=== PATIENT | female | born 1990 | race African-American/Black ===

== ENCOUNTER 2017-03-04 01:04 | Outpatient (CLI) | payer MEDICAID ==
[2017-03-04 01:43] LABS: APPEARANCE,URINE CLEAR; BILIRUBIN,URINE NEGATIVE (NEGATIVE); GLUCOSE, URINE NEGATIVE (NEGATIVE); KETONES,URINE NEGATIVE (NEGATIVE); LEUKOCYTE ESTERASE,URINE SMALL (NEGATIVE); NITRITE,URINE NEGATIVE (NEGATIVE); PROTEIN,URINE NEGATIVE (NEGATIVE); URINE SPECIFIC GRAVITY 1.015; UROBILINOGEN,URINE NEGATIVE mg/dL (<2.0)
--- NOTE | 2017-03-04 02:20 | Non Stress Test Report ---
Non Stress Test Datetime Report Generated by CPN: 03/04/2017 02:20 DEMOGRAPHIC Test Number: 1 EGA NST: 39.3 INDICATION Indication for Study: Ordered by Provider Indication for Study (NST) Other: LC VITAL SIGNS Temperature - NST: 97.6 URINE RESULTS Urine Protein, NST: Negative Urine Ketones - NST: Negative Urine Glucose - NST: Negative Urine Blood - NST: Negative MONITORING Monitor Explained: Monitor Explained; Test Explained; Patient Verbalized Understanding Time on Monitor: 03/04/2017 01:27 Time off Monitor: 03/04/2017 01:54 NST Duration: 27 NST INTERVENTIONS NST Interventions: PO Hydration Physician Notified NST: Vince BABY A: [id number] BABY A Movement : Present Contraction Frequency : 1 FHR Baseline : 125 Accelerations : 15X15 Decelerations : None Variability : Moderate 6-25bpm NST Review: Meets Criteria for Reactive NST NST Review and Verified By : B. Ring RN NST Results: Reactive NST REPORT Report Trigger: Send Report
[2017-03-04 02:44] LABS: URINE BARBITURATES SCREEN NEGATIVE; URINE METHADONE SCREEN NEGATIVE; URINE OPIATES LOW NEGATIVE; URINE PHENCYCLIDINE SCREEN NEGATIVE
== END 2017-03-04 02:20 | disposition home or self-care (01) ==
LOC: LC 01:04
PROVIDERS: ATTEND Obstetrics & Gynecology
PROC: 4A1HXCZ Monitoring of Products of Conception, Cardiac Rate, External Approach (ICD-10-PCS; principal; 2017-03-04)
DX: O47.1 False labor at or after 37 completed weeks of gestation (principal); Z3A.39 39 weeks gestation of pregnancy
CPT/HCPCS: 59025; 80307; 81005

== ENCOUNTER 2017-03-06 08:39 | Outpatient (CLI) | payer MEDICAID ==
[2017-03-06 09:18] LABS: APPEARANCE,URINE CLOUDY; BILIRUBIN,URINE NEGATIVE (NEGATIVE); GLUCOSE, URINE NEGATIVE (NEGATIVE); KETONES,URINE NEGATIVE (NEGATIVE); LEUKOCYTE ESTERASE,URINE MODERATE (NEGATIVE); NITRITE,URINE NEGATIVE (NEGATIVE); PROTEIN,URINE NEGATIVE (NEGATIVE); URINE SPECIFIC GRAVITY 1.012; UROBILINOGEN,URINE NEGATIVE mg/dL (<2.0)
[2017-03-06 09:37] LABS: URINE BARBITURATES SCREEN NEGATIVE; URINE METHADONE SCREEN NEGATIVE; URINE OPIATES LOW NEGATIVE; URINE PHENCYCLIDINE SCREEN NEGATIVE
[2017-03-06 10:53] LABS: CHLAM PCR NOT DETECTED (NOT DETECT)
--- NOTE | 2017-03-06 10:53 | Non Stress Test Report ---
Non Stress Test Datetime Report Generated by CPN: 03/06/2017 10:53 DEMOGRAPHIC EGA NST: 39.5 INDICATION Indication for Study: Other Indication for Study (NST) Other: LC MONITORING Monitor Explained: Monitor Explained; Test Explained; Patient Verbalized Understanding Time on Monitor: 03/06/2017 08:58 Time off Monitor: 03/06/2017 10:36 NST Duration: 98 NST INTERVENTIONS NST Interventions: PO Hydration; Reposition Patient Physician Notified NST: Dr Cr/C Cunha CNM BABY A: [id number] BABY A Movement : Present Contraction Frequency : irregular with irritability FHR Baseline : 135 Accelerations : 15X15 Decelerations : None Variability : Moderate 6-25bpm NST Review: Meets Criteria for Reactive NST NST Review and Verified By : FLORA RITCHIE Results: Reactive NST REPORT Report Trigger: Send Report
== END 2017-03-06 10:48 | disposition home or self-care (01) ==
LOC: LC 08:39
PROVIDERS: ATTEND Obstetrics & Gynecology
PROC: 4A1HXCZ Monitoring of Products of Conception, Cardiac Rate, External Approach (ICD-10-PCS; principal; 2017-03-06)
DX: O47.1 False labor at or after 37 completed weeks of gestation (principal); Z3A.39 39 weeks gestation of pregnancy
CPT/HCPCS: 59025; 80307; 81005; 87491; 87591

== ENCOUNTER 2017-03-06 15:27 | Inpatient (IN) | payer MEDICAID ==
[2017-03-06] MEDS ORDERED: RINGERS SOLUTION,LACTATED 1,000 ML IV ONE (15:32)
[2017-03-06] MEDS ORDERED: RINGERS SOLUTION,LACTATED 1,000 ML IV PRN (15:32)
[2017-03-06] MEDS ORDERED: PENICILLIN G-K 5 MILLION UNIT VIAL ONE (15:42)
[2017-03-06] MEDS ORDERED: LIDOCAINE 1% INJ-PF (10 MG/ML) 30 ML SDV ONE (15:42)
[2017-03-06] MEDS ORDERED: OXYTOCIN/NORMAL SALINE 20 UNIT/1,000 ML RTUINJ ONE (15:42)
[2017-03-06] MEDS ORDERED: MISOPROSTOL 0.2 MG TABLET ONE (15:42)
[2017-03-06 15:54] LABS: APPEARANCE,URINE CLEAR; BILIRUBIN,URINE NEGATIVE (NEGATIVE); GLUCOSE, URINE NEGATIVE (NEGATIVE); KETONES,URINE NEGATIVE (NEGATIVE); LEUKOCYTE ESTERASE,URINE NEGATIVE (NEGATIVE); NITRITE,URINE NEGATIVE (NEGATIVE); PROTEIN,URINE NEGATIVE (NEGATIVE); URINE SPECIFIC GRAVITY 1.012; UROBILINOGEN,URINE NEGATIVE mg/dL (<2.0)
[2017-03-06 16:05] LABS: ABSOLUTE EOSINOPHILS # (AUTO) 0.1 10^3/uL (0.0-0.6); ABSOLUTE LYMPHOCYTES (AUTO) 1.5 10^3/uL (0.5-4.7); ABSOLUTE MONOCYTES (AUTO) 0.7 10^3/uL (0.1-1.4); ABSOLUTE NEUT (AUTO) 3.7 10^3/uL (1.7-8.2); BASOPHILS % (AUTO) 0.6 % (0-2); EOSINOPHILS % (AUTO) 1.4 % (0-6); HEMATOCRIT 32.6 % (36.0-47.0); HEMOGLOBIN 11.1 g/dL (12.0-15.5); HGB HCT DIFFERENCE 0.7; LYMPHOCYTES % (AUTO) 24.9 % (13-45); MEAN CORPUSCULAR HEMOGLOBIN 29.6 pg (27.0-33.4); MEAN CORPUSCULAR HGB CONC 34.1 g/dL (32.0-36.0); MEAN CORPUSCULAR VOLUME 87 fl (80-97); MONOCYTES % (AUTO) 11.8 % (3-13); RED BLOOD COUNT 3.75 10^6/uL (3.72-5.28); RED CELL DISTRIBUTION WIDTH 13.6 % (11.5-14.0); SEGMENTED NEUTROPHILS % (AUTO) 61.3 % (42-78); WHITE BLOOD COUNT 6.1 10^3/uL (4.0-10.5)
[2017-03-06 16:19] LABS: URINE BARBITURATES SCREEN NEGATIVE; URINE METHADONE SCREEN NEGATIVE; URINE OPIATES LOW NEGATIVE; URINE PHENCYCLIDINE SCREEN NEGATIVE
[2017-03-06] MEDS ORDERED: DIPH/PERTUSS(ACELL)/TETANUS VAC/PF 0.5 ML SYR (>=10YO) IM PRN (16:48)
[2017-03-06] MEDS ORDERED: MEASLES,MUMPS&RUBELLA VACC/PF 0.5 ML VIAL SUBCUT PRN (16:48)
[2017-03-06] MEDS ORDERED: DIBUCAINE 1% OINTMENT 28 GM TP PRN (16:48)
[2017-03-06] MEDS ORDERED: BENZOCAINE/MENTHOL AEROSOL SPRAY 56 ML TOP PRN (16:48)
[2017-03-06] MEDS ORDERED: PSEUDOEPHEDRINE HCL 30 MG TABLET PO PRN (16:48)
[2017-03-06] MEDS ORDERED: GLYCERIN/WITCH HAZEL LEAF 1 EACH MED..PAD TP PRN (16:48)
[2017-03-06] MEDS ORDERED: NA PHOS,M-B/NA PHOS,DI-BA (ADULT) 133 ML ENEMA PR PRN (16:48)
[2017-03-06] MEDS ORDERED: PROMETHAZINE HCL 25 MG TABLET PO PRN (16:48)
[2017-03-06] MEDS ORDERED: ACETAMINOPHEN 650 MG SUPP.RECT PR PRN (16:48)
[2017-03-06] MEDS ORDERED: PROMETHAZINE HCL INJ 25 MG/1 ML VIAL IV PRN (16:48)
[2017-03-06] MEDS ORDERED: MAGNESIUM HYDROXIDE SUSP 30 ML UDCUP PO PRN (16:48)
[2017-03-06] MEDS ORDERED: PROMETHAZINE HCL 25 MG SUPP.RECT PR PRN (16:48)
[2017-03-06] MEDS ORDERED: DIPHENHYDRAMINE HCL 25 MG CAPSULE PO PRN (16:48)
[2017-03-06] MEDS ORDERED: OXYTOCIN/NORMAL SALINE 1,000 ML IV PRN (16:48)
[2017-03-06] MEDS ORDERED: IBUPROFEN 800 MG TABLET ONE (16:54)
--- NOTE | 2017-03-06 18:16 | Admission Physical ---
Datetime Report Generated by CPN: 03/06/2017 18:16 CURRENT ADMISSION Hx Assessment: The History has been Reviewed and is Current Chief Complaint: Uterine Contractions Indication for Induction: Not Applicable Admit Plan: Admit to Unit; Initiate Labor Protocol ALLERGIES Medication Allergies: No Medication Allergies: No Known Allergies (03/06/2017) Latex: No Latex Allergies OBSTETRICAL HISTORY EDC: 03/08/2017 00:00 : 5 Para: 2 Gestational Diabetes: No Rh Sensitization: No Incompetent Cervix: No SHERIDAN: No Infertility: No ART Treatment: No Uterine Anomaly: No IUGR: No Hx Previous C/S: No Macrosomia: No Hx Loss/Stillborn: No PIH: No Hx : No Placenta Previa/Abruption: No Depression/PP Depression: No PTL/PROM: No Post Hemorrhage: No SEE RECORDS Alcohol: No Marijuana : Yes Marijuana Comments: positive 03/06/17 Cocaine: No Other Illicit Drugs: No Cigarettes: Never Smoker. [id number] MEDICAL HISTORY Diabetes: No Blood Transfusion: No Pulmonary Disease (Asthma, TB): No Breast Disease: No Hypertension: No Generation Technologist Surgery: No Heart Disease: No Hosp/Surgery: No Autoimmune Disorder: No Anesthetic Complications: No Kidney Disease: No Abnormal Pap Smear: No Neuro/Epilepsy: No Psychiatric Disorders: No Other Medical Diseases: No Hepatitis/Liver Disease: No Significant Family History: No Varicosities/Phlebitis: No Trauma/Violence : No Thyroid Dysfunction: No INFECTIOUS HISTORY Gonorrhea: Yes Genital Herpes: No Chlamydia: No Tuberculosis: No Syphilis: No Hepatitis: No HIV/AIDS Exposure: No Rash or Viral Illness: No HPV: No Infectious History Comments: Positive GC this treated at office PHYSICAL EXAM General: Normal HEENT: Deferred Neurologic: Normal Thyroid: Deferred Heart: Normal Lungs: Normal Breast: Deferred Back: Normal Abdomen: Normal Genitourinary Exam: Normal Extremities: Normal DTRs: Normal Pelvic Type: Adequate Physical Exam Comments: proven to 7lbs 6oz VAGINAL EXAM Contraction Comments: 4-5min FETUS A EGA: 39.5 Monitoring: External US FHR Category: Category I Admit Comment: 27yo @ 39w5d medical hx significant for Late entry to care, obesity, PPD/anxiety with prior deliveries-no meds, Hx of THC use (positive on labor check earlier today but pt. reported no use during ), GBS positive and positive third trim gonorrhea screen (02/16/17) with negative KENIA today. Rubella immune, B pos. blood type. Pt. was sent home in early labor this morning and is now back with cervical change per RN exam. Will begin GBS prophylaxis and initiate labor protocol. Anticipate . Declines pain medication or epidural at this time. PLANS FOR LABOR AND DELIVERY Labor and Delivery: None Pain Management: None Feeding Preference: Breast Benefit of Breast Feed Discussed: Yes Circumcision: Yes INFORMED CONSENT Assignment: Dima Cr DO Signature: with User ID: Hugh : with User ID: Hugh
[2017-03-06] MEDS: DOCUSATE SODIUM 100 MG CAPSULE PO SCH (19:33)
[2017-03-06] MEDS: FERROUS SULFATE 325 MG TABLET PO SCH (19:33)
[2017-03-06] MEDS: FAMOTIDINE 20 MG TABLET PO SCH (21:53)
[2017-03-06] MEDS: IBUPROFEN 800 MG TABLET PO SCH (21:53)
[2017-03-06] MEDS: ACETAMINOPHEN WITH CODEINE #3 TABLET PO PRN (23:46)
[2017-03-07] MEDS: IBUPROFEN 800 MG TABLET PO SCH ×3 (05:59→21:57)
[2017-03-07 07:55] LABS: HEMOGLOBIN 10.5 g/dL (12.0-15.5); HGB HCT DIFFERENCE 0.5; MEAN CORPUSCULAR HGB CONC 33.8 g/dL (32.0-36.0); MEAN CORPUSCULAR VOLUME 89 fl (80-97); RED CELL DISTRIBUTION WIDTH 13.7 % (11.5-14.0); WHITE BLOOD COUNT 8.1 10^3/uL (4.0-10.5)
[2017-03-07] MEDS: PRENATAL VITAMIN W-O CA NO5/FE FUMARATE/FA CAPSULE PO SCH (09:30)
[2017-03-07] MEDS: FERROUS SULFATE 325 MG TABLET PO SCH ×2 (09:30→17:39)
[2017-03-07] MEDS: FAMOTIDINE 20 MG TABLET PO SCH ×2 (09:31→21:57)
[2017-03-07] MEDS: DOCUSATE SODIUM 100 MG CAPSULE PO SCH ×2 (09:31→17:39)
[2017-03-07] MEDS: SENNOSIDES/DOCUSATE 8.6-50 MG 1 EACH TABLET PO SCH (09:31)
--- NOTE | 2017-03-07 12:13 | PDOC PROGRESS REPORT ---
Subjective-OB Subjective: Post Delivery Day: 27 year old. Denies any needs at this time pt sitting up offers no complaints spontaneous labor with some difficulty vendor management consultant to see pt with next feeding planner chief to see pt- history of gc this , thc use, anxiety, ppd , and obesity all comorbidities for depression Physical Exam (OB) Vital Signs: Temp Pulse Resp BP Pulse Ox 97.9 F 62 16 109/56 L 100 03/07/17 07:35 03/07/17 07:35 03/07/17 07:35 03/07/17 07:35 03/07/17 07:35 - Lochia Lochia Amount: Scant < 10 ml Lochia Color: Rubra/Red - Abdomen Description: Tender, Soft Hernia Present: No Fundal Description: Firm, Midline Fundal Height: u/u - u/2 Objective-Diagnostic Laboratory: 03/07/17 07:45 03/06/17 03/06/17 03/06/17 15:35 15:56 15:56 WBC 6.1 RBC 3.75 Hgb 11.1 L Hct 32.6 L MCV 87 MCH 29.6 MCHC 34.1 RDW 13.6 Plt Count 157 Seg Neutrophils % 61.3 Lymphocytes % 24.9 Monocytes % 11.8 Eosinophils % 1.4 Basophils % 0.6 Absolute Neutrophils 3.7 Absolute Lymphocytes 1.5 Absolute Monocytes 0.7 Absolute Eosinophils 0.1 Absolute Basophils 0.0 Urine Color YELLOW Urine Appearance CLEAR Urine pH 7.0 Ur Specific [place] 1.012 Urine Protein NEGATIVE Urine Glucose (UA) NEGATIVE Urine Ketones NEGATIVE Urine Blood NEGATIVE Urine Nitrite NEGATIVE Ur Leukocyte Esterase NEGATIVE Blood Type B POSITIVE Antibody Screen NEGATIVE 03/07/17 07:45 WBC 8.1 RBC 3.50 L Hgb 10.5 L Hct 31.0 L MCV 89 MCH 30.0 MCHC 33.8 RDW 13.7 Plt Count 164 Seg Neutrophils % Lymphocytes % Monocytes % Eosinophils % Basophils % Absolute Neutrophils Absolute Lymphocytes Absolute Monocytes Absolute Eosinophils Absolute Basophils Urine Color Urine Appearance Urine pH Ur Specific [place] Urine Protein Urine Glucose (UA) Urine Ketones Urine Blood Urine Nitrite Ur Leukocyte Esterase Blood Type Antibody Screen
[2017-03-07] MEDS: ACETAMINOPHEN WITH CODEINE #3 TABLET PO PRN ×2 (16:01→21:57)
[2017-03-08] MEDS: IBUPROFEN 800 MG TABLET PO SCH ×2 (06:13→13:34)
[2017-03-08 09:10] VITALS: BP 112/62
--- NOTE | 2017-03-08 09:33 | PDOC PROGRESS REPORT ---
Subjective-OB Subjective: Post Delivery Day: 27 year old. Denies any needs at this time Doing well, ready to go home, breast feeding, scant bleeding, eating well, voiding, desires BTL @ 4 weeks Physical Exam (OB) Vital Signs: Temp Pulse Resp BP Pulse Ox 98.2 F 66 18 112/62 100 03/08/17 07:53 03/08/17 07:53 03/08/17 07:53 03/08/17 07:53 03/08/17 07:53 Intake & Output 03/07/17 03/08/17 03/09/17 06:59 06:59 06:59 Intake Total 240 Balance 240 - Lochia Lochia Amount: Small 10-25 ml Lochia Color: Rubra/Red - Abdomen Description: Soft, Round Hernia Present: No Fundal Description: Firm, Midline Fundal Height: u/u - u/2 Objective-Diagnostic Laboratory: 03/07/17 07:45 Assessment and Plan(PN) - Assessment and Plan (1) Marijuana abuse Is this a current diagnosis for this admission?: Yes (2) Anxiety Is this a current diagnosis for this admission?: Yes (3) Normal vaginal delivery Is this a current diagnosis for this admission?: Yes (4) GBS (group B Streptococcus carrier), +RV culture, currently Is this a current diagnosis for this admission?: Yes (5) Anemia Qualifiers: Anemia type: iron deficiency Is this a current diagnosis for this admission?: Yes - Time Spent with Patient Time with patient: Less than 15 minutes Medications reviewed and adjusted accordingly: Yes - Disposition Anticipated Discharge: Home Within: Other - d/c today
--- NOTE | 2017-03-08 09:37 | PDOC DISCHARGE SUMMARY ---
Final Diagnosis Discharge Date: 03/08/17 - Final Diagnosis (1) Marijuana abuse Is this a current diagnosis for this admission?: Yes (2) Anxiety Is this a current diagnosis for this admission?: Yes (3) Normal vaginal delivery Is this a current diagnosis for this admission?: Yes (4) GBS (group B Streptococcus carrier), +RV culture, currently Is this a current diagnosis for this admission?: Yes (5) Anemia Is this a current diagnosis for this admission?: Yes Discharge Data - Discharge Medication Home Medications: Ferrous Sulfate [Iron] 325 mg PO DAILY 03/06/17 Ferrous Sulfate [Feosol 325 mg Tablet] 325 mg PO BID #0 tablet 03/08/17 Gestational Age: 39.5 Reason(s) for Admission: Onset of Labor Procedures: NST, Ultrasound Intrapartum Procedure(s): Spontaneous Vaginal Delivery Complication(s): Laceration-Vaginal, Laceration-Labial - [place] Data Baby 1 Male at 1 minute: 9 at 5 minutes: 10 Weight: 3.317 kg Home with Mother: Yes Complications: No - Diagnosis Test Laboratory: Temp Pulse Resp BP Pulse Ox 98.2 F 66 18 112/62 100 03/08/17 07:53 03/08/17 07:53 03/08/17 07:53 03/08/17 07:53 03/08/17 07:53 03/06/17 03/06/17 03/07/17 15:35 15:56 07:45 RBC 3.75 3.50 L Hgb 11.1 L 10.5 L Hct 32.6 L 31.0 L Urine Opiates Screen NEGATIVE - Discharge information/Instructions Discharge Activity: Activity As Tolerated, No Lifting Over 10 Pounds, No Lifting /Push/Pulling, Pelvic Rest Discharge Diet: As Tolerated, Regular Disposition: HOME, SELF-CARE Follow up with: [facility] in: 4, Weeks
[2017-03-08] MEDS: SENNOSIDES/DOCUSATE 8.6-50 MG 1 EACH TABLET PO SCH (10:34)
[2017-03-08] MEDS: FERROUS SULFATE 325 MG TABLET PO SCH (10:34)
[2017-03-08] MEDS: DOCUSATE SODIUM 100 MG CAPSULE PO SCH (10:34)
[2017-03-08] MEDS: PRENATAL VITAMIN W-O CA NO5/FE FUMARATE/FA CAPSULE PO SCH (10:34)
[2017-03-08] MEDS: FAMOTIDINE 20 MG TABLET PO SCH (10:34)
[2017-03-08] MEDS ORDERED: DIPH/PERTUSS(ACELL)/TETANUS VAC/PF 0.5 ML SYR (>=10YO) IM PRN (14:59)
[2017-03-08] MEDS ORDERED: PROMETHAZINE HCL INJ 25 MG/1 ML VIAL IV PRN (15:00)
[2017-03-08] MEDS ORDERED: MAGNESIUM HYDROXIDE SUSP 30 ML UDCUP PO PRN (15:01)
--- NOTE | 2017-03-09 09:50 | Delivery Summary ---
Del Sum A-C Datetime Report Generated by CPN: 03/09/2017 09:50 DELIVERY PERSONNEL DELIVERY PERSONNEL: [phone] DELIVERY PERSONNEL: [phone] DELIVERY PERSONNEL: [id number] Nurse Division Chair Certified:: Nanda Cunha CNM Labor and Delivery Nurse:: HUGO Bethea Axle And Frame Mechanic:: Beatriz Cadena RN MATERNAL INFORMATION Delivery Anesthesia: None Medications After Delivery: Pitocin Drip 20 Units/1000ml NSS Estimated Blood Loss (ml): 50 Maternal Complications: None Provider Comments: Pt. quickly progressed to c/c/+1 with urge to push began pushing and SROM took place immediately prior to delivery. Viable baby boy delivered with vig. respiratory effort and cry. Baby placed on maternal abdomen (terminal meconium noted). Cord clamped x2 after pulsation cessation and cut by FOB (3vc noted). Placenta delivered spontaneously intact and sent to pathology for evaluation. Fundus firm, minimal bleeding. Vaginal and perineal inspection revealed abrasions as noted above. Mother and baby continue skin to skin and bonding in room-stable at this time. Pt. does report marijuana use yesterday when told that test was positive on admission. LABOR SUMMARY EDC: 03/08/2017 00:00 No. Babies in Womb: 1 Attempted: No Labor Anesthesia: None LABOR INFORMATION Reason for Induction: Not Applicable Onset of Labor: 03/06/2017 15:35 Complete Dilatation: 03/06/2017 16:20 Oxytocin: N/A Group B Beta Strep: Positive Antibiotics # of Doses: 1 Antibiotics Time of Last Dose: 1550 Name of Antibiotic Given: Penicillin Steroids Given: None Reason Steroids Not Administered: Not Applicable MEMBRANES Membranes Rupture Method: Spontaneous Rupture of Membranes: 03/06/2017 16:26 Length of Rupture (hr): 0.03 Amniotic Fluid Color: Clear Amniotic Fluid Amount: Scant Amniotic Fluid Odor: Normal STAGES OF LABOR Stage 1 hr: 0 Stage 1 min: 45 Stage 2 hr: 0 Stage 2 min: 8 Stage 3 hr: 0 Stage 3 min: 4 Total Time in Labor hr: 0 Total Time in Labor min: 57 VAGINAL DELIVERY Episiotomy: None Laceration Extension: N/A Laceration Type: None Other Laceration: superficial labial and vaginal abrasion-hemostatic Laceration Repair: Not Applicable Laceration Repair Note: n/a Sponge Count Correct: N/A Sharps Count Correct: Yes CSECTION DELIVERY Primary Indication: N/A BABY A INFORMATION Infant Delivery Date/Time: 03/06/2017 16:28 Method of Delivery: Vaginal Born in Route : No : N/A Forceps: N/A Vacuum Extraction: N/A Shoulder Dystocia : No PRESENTATION/POSITION BABY A Presentation: Cephalic Cephalic Presentation: Vertex Vertex Position: Left Occipital Anterior Breech Presentation: N/A PLACENTA INFORMATION BABY A Placenta Delivery Time : 03/06/2017 16:32 Placenta Method of Delivery: Spontaneous Placenta Status: Delivered SCORES BABY A Heart Rate 1 min: >100 bpm Resp Effort 1 min: Good Cry Reflex Irritability 1 min: Cough or Sneeze or Pulls Away Muscle Tone 1 min: Active Motion Color 1 min: Body [place], Extremities Blue Resuscitation Effort 1 min: N/A SCORE 1 MIN: 9 Heart Rate 5 min: >100 bpm Resp Effort 5 min: Good Cry Reflex Irritability 5 min: Cough or Sneeze or Pulls Away Muscle Tone 5 min: Active Motion Color 5 min: Completely [place] Resuscitation Effort 5 min: N/A SCORE 5 MIN: 10 INFORMATION BABY A Gestational Age at Delivery: 39.5 Gestational Status: Full Term- 39- 40.6 Weeks Outcome : Liveborn Infant Condition : Stable Infant Sex: Male IDENTIFICATION BABY A Verification Date/Time: 03/06/2017 16:39 ID Band Number: [id number] Mother's Name Verified: Yes Infant RN Verifying : Amalia Camp RNC Additional Verifying Personnel: Rad[facility] WEIGHT/LENGTH BABY A Infant Birthweight (gm): 3330 Infant Weight (lb): 7 Infant Weight (oz): 5 Infant Length (in): 20.25 Infant Length (cm): 51.44 CORD INFORMATION BABY A No. Cord Vessels: 3 Nuchal Cord : Around Neck x2, Loose Cord Blood Taken: Yes-For Storage (Mom's Blood type +) Infant Suction: None ASSESSMENT BABY A Skin to Skin: Yes Skin to Skin: Yes Skin to Skin Time (min): 60 SIGNATURES Assignment: DO Luz Elena Schumacher: with User ID: [email or web address] : with User ID: Hugh
== END 2017-03-08 17:09 | disposition home or self-care (01) | DRG 775 ==
LOC: LC 15:27 → LR 15:35 → 2S 18:15
PROVIDERS: ADMIT Obstetrics & Gynecology; ATTEND Obstetrics & Gynecology
PROC: 10E0XZZ Delivery of Products of Conception, External Approach (ICD-10-PCS; principal; 2017-03-06)
PROC: 4A1HXCZ Monitoring of Products of Conception, Cardiac Rate, External Approach (ICD-10-PCS; 2017-03-06)
PROC: 4A1HXCZ Monitoring of Products of Conception, Cardiac Rate, External Approach (ICD-10-PCS; 2017-03-06)
PROC: 3E0234Z Introduction of Serum, Toxoid and Vaccine into Muscle, Percutaneous Approach (ICD-10-PCS; 2017-03-08)
DX: O99.324 Drug use complicating childbirth (principal); O47.1 False labor at or after 37 completed weeks of gestation; O69.81X0 Labor and delivery complicated by cord around neck, without compression, not applicable or unspecified; O99.824 Streptococcus B carrier state complicating childbirth; O70.0 First degree perineal laceration during delivery; O99.02 Anemia complicating childbirth; D50.9 Iron deficiency anemia, unspecified; F12.10 Cannabis abuse, uncomplicated; O99.214 Obesity complicating childbirth; E66.9 Obesity, unspecified; Z3A.39 39 weeks gestation of pregnancy; Z37.0 Single live birth; Z68.33 Body mass index [BMI] 33.0-33.9, adult; Z23 Encounter for immunization
CPT/HCPCS: 36415; 59025; 80307; 81005; 85025; 85027; 86592; 86850; 86900; 86901; 87491; 87591; 88307; 90715; J2540; J2590; J3490

== ENCOUNTER 2018-03-25 13:01 | Emergency (ER) | payer MEDICAID ==
[2018-03-25 13:12] VITALS: BP 107/55
== END 2018-03-25 13:53 | disposition left against medical advice (07) ==
LOC: ER 13:01
DX: Z53.21 Procedure and treatment not carried out due to patient leaving prior to being seen by health care provider (principal)

== ENCOUNTER → 2019-01-07 | Outpatient (CLI) | payer SELFPAY ==
--- NOTE | 2019-01-07 15:20 | RADIOLOGY REPORT (SQ) ---
EXAM DESCRIPTION: U/S [id number] TRNABD 1GES W/ODOP COMPLETED DATE/TIME: 01/07/2019 2:27 pm REASON FOR STUDY: ENCOUNTER FOR SUPERVISION OF OTHER NORMAL , FIRST TRIMESTER Z34.81 ENCOU NTER FOR SUPRVSN OF NORMAL , FIRST TRIM COMPARISON: None. TECHNIQUE: Transabdominal static and realtime grayscale images acquired of the pelvis. Additional se lected spectral and color Doppler images recorded. All images stored on PACs. bHCG: Not available CLINICAL DATES: Last menses 10/29/2018 LIMITATIONS: None. FINDINGS: FETUS: Single Living intrauterine . ULTRASOUND EGA: 9 weeks 5 days ULTRASOUND [place]: 08/07/2019 EFW: Not calculated, less than 20 weeks gestational age CRL: 2.8 cm FHR: 165 beats per minute. SURVEY: Too early to assess AMNIOTIC FLUID: Adequate amount. PLACENTA: Not yet developed due to early gestation. SUBCHORIONIC BLEED: No SIZE OF BLEED: Not applicable. UTERUS: No masses. No anomalies. Uterus is 10 x 9 x 9 cm in size with a dorsal uterine body 4 cm fib roid CERVICAL LENGTH: 2.6 cm Closed. RIGHT ADNEXA: Normal ovary with normal vascular flow. Right ovary 4.3 x 4.7 x 1.4 cm in size. No adnexal free fluid. No adnexal masses. LEFT ADNEXA: Difficult to visualize due to adnexal bowel gas. Normal ovary with normal vascular flow . Left ovary 2.1 x 1.8 x 1.9 cm in size. No adnexal free fluid. No adnexal masses. FREE FLUID: None. OTHER: No other significant finding. IMPRESSION: LIVING INTRAUTERINE . EGA 9 weeks 5 days Trimester of : First - 0 to 13 weeks. TECHNICAL DOCUMENTATION: JOB ID: [id number] [employer]- All Rights Reserved rev Reading location - IP/workstation name: [email or web address]
== END ==
LOC: RAD 14:08
PROVIDERS: ATTEND Midwife
DX: Z34.81 Encounter for supervision of other normal pregnancy, first trimester (principal)
CPT/HCPCS: 76801

== ENCOUNTER 2019-07-23 10:34 | Outpatient (CLI) | payer MEDICAID ==
--- NOTE | 2019-07-23 12:31 | Non Stress Test Report ---
Non Stress Test Datetime Report Generated by CPN: 07/23/2019 12:31 INDICATION Indication for Study (NST) Other: Labor Check VITAL SIGNS Temperature - NST: 98.3 Pulse - NST: 86 RESP - NST: 16 NBPSYS NST: 119 NBPDIA NST: 81 MONITORING Monitor Explained: Monitor Explained Time on Monitor: 07/23/2019 11:08 Time off Monitor: 07/23/2019 12:19 NST Duration: 71 NST INTERVENTIONS NST Interventions: None Physician Notified NST: C Cunha CNM BABY A: [id number] BABY A Movement : Present Contraction Frequency : x1, irritibility FHR Baseline : 135 Accelerations : 15X15 Decelerations : None Variability : Moderate 6-25bpm NST Review: Meets Criteria for Reactive NST NST Review and Verified By : squinn NST Results: Reactive NST REPORT Report Trigger: Send Report
[2019-07-23 13:51] LABS: APPEARANCE,URINE SLIGHTLY-CLOUDY; BILIRUBIN,URINE NEGATIVE (NEGATIVE); COLOR,URINE YELLOW; GLUCOSE, URINE NEGATIVE (NEGATIVE); KETONES,URINE NEGATIVE (NEGATIVE); LEUKOCYTE ESTERASE,URINE NEGATIVE (NEGATIVE); NITRITE,URINE NEGATIVE (NEGATIVE); PROTEIN,URINE NEGATIVE (NEGATIVE); URINE SPECIFIC GRAVITY 1.016
[2019-07-23 14:07] LABS: URINE AMPHETAMINES SCREEN NEGATIVE; URINE BARBITURATES SCREEN NEGATIVE; URINE BENZODIAZEPINES SCREEN NEGATIVE; URINE COCAINE SCREEN NEGATIVE; URINE MARIJUANA (THC) SCREEN NEGATIVE; URINE METHADONE SCREEN NEGATIVE; URINE PHENCYCLIDINE SCREEN NEGATIVE
== END 2019-07-23 12:25 | disposition home or self-care (01) ==
LOC: LC 10:34
PROVIDERS: ATTEND Obstetrics & Gynecology
PROC: 4A1HXCZ Monitoring of Products of Conception, Cardiac Rate, External Approach (ICD-10-PCS; principal; 2019-07-23)
DX: O47.1 False labor at or after 37 completed weeks of gestation (principal); Z3A.38 38 weeks gestation of pregnancy
CPT/HCPCS: 80307; 81005

== ENCOUNTER 2019-07-28 22:55 | Outpatient (CLI) | payer MEDICAID ==
[2019-07-28 23:29] LABS: APPEARANCE,URINE CLEAR; BILIRUBIN,URINE NEGATIVE (NEGATIVE); COLOR,URINE STRAW; GLUCOSE, URINE NEGATIVE (NEGATIVE); KETONES,URINE NEGATIVE (NEGATIVE); LEUKOCYTE ESTERASE,URINE TRACE (NEGATIVE); NITRITE,URINE NEGATIVE (NEGATIVE); PROTEIN,URINE NEGATIVE (NEGATIVE); URINE SPECIFIC GRAVITY 1.008; UROBILINOGEN,URINE NEGATIVE mg/dL (<2.0)
[2019-07-28 23:53] LABS: URINE AMPHETAMINES SCREEN NEGATIVE; URINE BARBITURATES SCREEN NEGATIVE; URINE BENZODIAZEPINES SCREEN NEGATIVE; URINE COCAINE SCREEN NEGATIVE; URINE MARIJUANA (THC) SCREEN NEGATIVE; URINE METHADONE SCREEN NEGATIVE; URINE PHENCYCLIDINE SCREEN NEGATIVE
--- NOTE | 2019-07-29 00:31 | Non Stress Test Report ---
Non Stress Test Datetime Report Generated by CPN: 07/29/2019 00:30 DEMOGRAPHIC EGA NST: 38.6 INDICATION Indication for Study (NST) Other: Gesational age greater than 32 weeks VITAL SIGNS Temperature - NST: 97.0 Pulse - NST: 75 RESP - NST: 17 NBPSYS NST: 121 NBPDIA NST: 66 MONITORING Monitor Explained: Monitor Explained; Test Explained; Patient Verbalized Understanding Time on Monitor: 07/28/2019 23:08 Time off Monitor: 07/29/2019 00:11 NST Duration: 63 NST INTERVENTIONS NST Interventions: PO Hydration; Reposition Patient Physician Notified NST: Dr. Donohue BABY A: [id number] BABY A Movement : Present Contraction Frequency : uterine irritability FHR Baseline : 135 Accelerations : 15X15 Accelerations : 15X15 Decelerations : None Variability : Moderate 6-25bpm NST Review: Questionable if Meets Criteria for Reactive NST NST Review and Verified By : Pham Venegas RN NST Results: Reactive NST REPORT Report Trigger: Send Report
== END 2019-07-29 00:19 | disposition home or self-care (01) ==
LOC: LC 22:55
PROVIDERS: ATTEND Obstetrics & Gynecology Gynecology
PROC: 4A1HXCZ Monitoring of Products of Conception, Cardiac Rate, External Approach (ICD-10-PCS; principal; 2019-07-28)
DX: O47.1 False labor at or after 37 completed weeks of gestation (principal); Z3A.38 38 weeks gestation of pregnancy
CPT/HCPCS: 59025; 80307; 81005

== ENCOUNTER 2019-08-01 10:10 | Outpatient (CLI) | payer MEDICAID ==
[2019-08-01 11:21] LABS: APPEARANCE,URINE SLIGHTLY-CLOUDY; BILIRUBIN,URINE NEGATIVE (NEGATIVE); COLOR,URINE YELLOW; GLUCOSE, URINE NEGATIVE (NEGATIVE); KETONES,URINE NEGATIVE (NEGATIVE); LEUKOCYTE ESTERASE,URINE SMALL (NEGATIVE); NITRITE,URINE NEGATIVE (NEGATIVE); PROTEIN,URINE NEGATIVE (NEGATIVE); URINE SPECIFIC GRAVITY 1.015
[2019-08-01 11:44] LABS: URINE AMPHETAMINES SCREEN NEGATIVE; URINE BARBITURATES SCREEN NEGATIVE; URINE BENZODIAZEPINES SCREEN NEGATIVE; URINE COCAINE SCREEN NEGATIVE; URINE MARIJUANA (THC) SCREEN NEGATIVE; URINE METHADONE SCREEN NEGATIVE; URINE PHENCYCLIDINE SCREEN NEGATIVE
[2019-08-01 11:47] LABS: ABSOLUTE EOSINOPHILS # (AUTO) 0.1 10^3/uL (0.0-0.6); ABSOLUTE LYMPHOCYTES (AUTO) 1.2 10^3/uL (0.5-4.7); ABSOLUTE MONOCYTES (AUTO) 0.7 10^3/uL (0.1-1.4); ABSOLUTE NEUT (AUTO) 3.8 10^3/uL (1.7-8.2); BASOPHILS % (AUTO) 0.5 % (0-2); EOSINOPHILS % (AUTO) 1.2 % (0-6); HEMATOCRIT 31.4 % (36.0-47.0); HEMOGLOBIN 10.6 g/dL (12.0-15.5); LYMPHOCYTES % (AUTO) 20.5 % (13-45); MEAN CORPUSCULAR HEMOGLOBIN 29.2 pg (27.0-33.4); MEAN CORPUSCULAR HGB CONC 33.7 g/dL (32.0-36.0); MEAN CORPUSCULAR VOLUME 87 fl (80-97); MONOCYTES % (AUTO) 12.8 % (3-13); PLATELET COUNT 177 10^3/uL (150-450); RED BLOOD COUNT 3.61 10^6/uL (3.72-5.28); RED CELL DISTRIBUTION WIDTH 13.5 % (11.5-14.0); TOTAL CELLS COUNTED % (AUTO) 100 %; WHITE BLOOD COUNT 5.8 10^3/uL (4.0-10.5)
[2019-08-01 11:52] LABS: INTERNATIONAL RATION (INR) 1.02; PROTHROMBIN TIME 13.4 SEC (11.4-15.4)
[2019-08-01 11:53] LABS: PARTIAL THROMBOPLASTIN TIME 27.5 SEC (23.5-35.8)
[2019-08-01 14:10] LABS: RHOGAM DOSE INDICATED 0 VIAL(S)
== END 2019-08-01 14:30 | disposition home or self-care (01) ==
LOC: LC 10:10
PROVIDERS: ATTEND Student in an Organized Health Care Education/Training Program
PROC: 4A1HXCZ Monitoring of Products of Conception, Cardiac Rate, External Approach (ICD-10-PCS; principal; 2019-08-01)
DX: Z04.1 Encounter for examination and observation following transport accident (principal); Z3A.39 39 weeks gestation of pregnancy; Z91.040 Latex allergy status
CPT/HCPCS: 36415; 80307; 81005; 85025; 85460; 85610; 85730

== ENCOUNTER 2019-08-06 18:25 | Inpatient (IN) | payer MEDICAID ==
[2019-08-06] MEDS ORDERED: RINGERS SOLUTION,LACTATED 1,000 ML IV PRN (18:31)
[2019-08-06] MEDS ORDERED: RINGERS SOLUTION,LACTATED 1,000 ML IV ONE (18:31)
[2019-08-06 19:51] LABS: ABSOLUTE EOSINOPHILS # (AUTO) 0.1 10^3/uL (0.0-0.6); ABSOLUTE LYMPHOCYTES (AUTO) 1.3 10^3/uL (0.5-4.7); ABSOLUTE MONOCYTES (AUTO) 0.6 10^3/uL (0.1-1.4); ABSOLUTE NEUT (AUTO) 3.9 10^3/uL (1.7-8.2); BASOPHILS % (AUTO) 0.2 % (0-2); EOSINOPHILS % (AUTO) 1.5 % (0-6); HEMATOCRIT 31.8 % (36.0-47.0); HEMOGLOBIN 10.7 g/dL (12.0-15.5); LYMPHOCYTES % (AUTO) 21.9 % (13-45); MEAN CORPUSCULAR HEMOGLOBIN 29.4 pg (27.0-33.4); MEAN CORPUSCULAR HGB CONC 33.8 g/dL (32.0-36.0); MEAN CORPUSCULAR VOLUME 87 fl (80-97); MONOCYTES % (AUTO) 10.9 % (3-13); PLATELET COUNT 179 10^3/uL (150-450); RED BLOOD COUNT 3.66 10^6/uL (3.72-5.28); RED CELL DISTRIBUTION WIDTH 13.1 % (11.5-14.0); SEGMENTED NEUTROPHILS % (AUTO) 65.5 % (42-78); TOTAL CELLS COUNTED % (AUTO) 100 %
[2019-08-06] MEDS ORDERED: OXYTOCIN/NORMAL SALINE 20 UNIT/1,000 ML RTUINJ ONE (20:05)
[2019-08-06] MEDS ORDERED: MISOPROSTOL 0.2 MG TABLET ONE (20:05)
[2019-08-06] MEDS ORDERED: LIDOCAINE 1% INJ-PF (10 MG/ML) 30 ML SDV ONE (20:05)
[2019-08-06] MEDS ORDERED: OXYTOCIN 10 UNIT/ML VIAL ONE (20:05)
[2019-08-06 20:07] LABS: URINE AMPHETAMINES SCREEN NEGATIVE; URINE BARBITURATES SCREEN NEGATIVE; URINE BENZODIAZEPINES SCREEN NEGATIVE; URINE COCAINE SCREEN NEGATIVE; URINE MARIJUANA (THC) SCREEN NEGATIVE; URINE METHADONE SCREEN NEGATIVE; URINE PHENCYCLIDINE SCREEN NEGATIVE
[2019-08-06] MEDS ORDERED: OXYTOCIN/NORMAL SALINE 20 UNIT/1,000 ML RTUINJ IV PRN (20:07)
--- NOTE | 2019-08-06 20:56 | Admission Physical ---
Datetime Report Generated by CPN: 08/06/2019 20:56 CURRENT ADMISSION Chief Complaint: Uterine Contractions; Scheduled Induction of Labor Indication for Induction- Other: Elective, h/o precipitous delivery Admit Impression : Term, Intrauterine ; No Active Labor Admit Plan: Admit to Unit; Initiate Labor Induction Protocol ALLERGIES Medication Allergies: No Medication Allergies: Latex, Natural Rubber (07/28/2019) Latex: No Latex Allergies OBSTETRICAL HISTORY EDC: 08/05/2019 00:00 : 4 Para: 3 Gestational Diabetes: No Rh Sensitization: No Incompetent Cervix: No SHERIDAN: No Infertility: No ART Treatment: No Uterine Anomaly: No IUGR: No Hx Previous C/S: No Macrosomia: No Hx Loss/Stillborn: No PIH: No Hx : No Placenta Previa/Abruption: No Depression/PP Depression: Yes PTL/PROM: No Post Hemorrhage: No Current Procedures: Ultrasound Obstetrical History Comments: depression 2nd baby SEE RECORDS Alcohol: No Marijuana : No Cocaine: No Other Illicit Drugs: No Cigarettes: Never Smoker. [phone] MEDICAL HISTORY Diabetes: No Blood Transfusion: No Pulmonary Disease (Asthma, TB): No Breast Disease: No Hypertension: No Archival Records Clerk Surgery: No Heart Disease: No Hosp/Surgery: No Autoimmune Disorder: No Anesthetic Complications: No Kidney Disease: No Abnormal Pap Smear: No Neuro/Epilepsy: No Psychiatric Disorders: Yes Other Medical Diseases: No Hepatitis/Liver Disease: No Significant Family History: No Varicosities/Phlebitis: No Trauma/Violence : No Thyroid Dysfunction: No Medical History Comments: anxiety and depression, obesity, anemia INFECTIOUS HISTORY Gonorrhea: No Genital Herpes: No Chlamydia: No Tuberculosis: No Syphilis: No Hepatitis: No HIV/AIDS Exposure: No Rash or Viral Illness: No HPV: No Infectious History Comments: trich/pos chlam PHYSICAL EXAM General: Normal HEENT: Normal Neurologic: Normal Thyroid: Deferred Heart: Normal Lungs: Normal Breast: Deferred Back: Normal Abdomen: Normal Genitourinary Exam: Normal Extremities: Normal DTRs: Normal Pelvic Type: Adequate Vital Signs: Reviewed VAGINAL EXAM Dilatation: 3 Effacement: 80 Station: BB Contraction Comments: q 2-4 MEMBRANES Membranes: Intact FETUS A EGA: 40.1 Monitoring: External US FHR- Baseline: 155 Variability: Moderate 6-25bpm Accelerations: 15X15 Decelerations: None FHR Category: Category I Presentation: Vertex Admit Comment: 29yo at 40+1ega presents for IOL (elective). Desires BTL - title XX done. Dental issues - hydrocodone given by dentist. GBS negative. Desires elective IOL. Admit for AROM and Pitocin. Anticipate . R/B/A of IOL elective reviewed with patient. PLANS FOR LABOR AND DELIVERY Labor and Delivery: Other, Specify Pain Management: None; Natural Feeding Preference: Breast Benefit of Breast Feed Discussed: Yes Circumcision: N/A INFORMED CONSENT Informed Consent Obtained: Vaginal Delivery; Induction of Labor; Risks, Benefits and Alternatives Discussed Signature: with User ID: [email or web address]
[2019-08-07] MEDS ORDERED: NALBUPHINE HCL INJ 10 MG/1 ML AMPULE ONE (01:18)
[2019-08-07] MEDS ORDERED: ONDANSETRON HCL INJ/PF 4 MG/2 ML SDV ONE (01:28)
[2019-08-07] MEDS ORDERED: MISOPROSTOL 0.2 MG TABLET ONE (02:12)
[2019-08-07] MEDS ORDERED: ONDANSETRON HCL INJ/PF 4 MG/2 ML SDV IV ONE (02:30)
[2019-08-07] MEDS ORDERED: PSEUDOEPHEDRINE HCL 30 MG TABLET PO PRN (03:13)
[2019-08-07] MEDS ORDERED: ZOLPIDEM TARTRATE 5 MG TABLET PO PRN (03:13)
[2019-08-07] MEDS ORDERED: MISOPROSTOL 0.2 MG TABLET PR ONE (03:13)
[2019-08-07] MEDS ORDERED: GLYCERIN/WITCH HAZEL LEAF 1 EACH MED..WIPE TP PRN (03:13)
[2019-08-07] MEDS ORDERED: OXYTOCIN/NORMAL SALINE 20 UNIT/1,000 ML RTUINJ IV PRN (03:13)
[2019-08-07] MEDS ORDERED: PROMETHAZINE HCL 25 MG SUPP.RECT PR PRN (03:13)
[2019-08-07] MEDS ORDERED: BENZOCAINE/MENTHOL AEROSOL SPRAY 56 ML TOP PRN (03:13)
[2019-08-07] MEDS ORDERED: DIPHENHYDRAMINE HCL 25 MG CAPSULE PO PRN (03:13)
[2019-08-07] MEDS ORDERED: MEASLES,MUMPS&RUBELLA VACC/PF 0.5 ML VIAL SUBCUT PRN (03:13)
[2019-08-07] MEDS ORDERED: PROMETHAZINE HCL 25 MG TABLET PO PRN (03:13)
[2019-08-07] MEDS ORDERED: MAGNESIUM HYDROXIDE SUSP 30 ML UDCUP PO PRN (03:13)
[2019-08-07] MEDS ORDERED: NA PHOS,M-B/NA PHOS,DI-BA (ADULT) 133 ML ENEMA PR PRN (03:13)
[2019-08-07] MEDS ORDERED: PROMETHAZINE HCL INJ 25 MG/1 ML VIAL IV PRN (03:13)
[2019-08-07] MEDS ORDERED: DIBUCAINE 1% OINTMENT 28 GM TP PRN (03:13)
[2019-08-07] MEDS ORDERED: ACETAMINOPHEN 325 MG TABLET PO PRN (03:13)
[2019-08-07] MEDS ORDERED: ACETAMINOPHEN WITH CODEINE #3 TABLET PO PRN (03:13)
--- NOTE | 2019-08-07 03:52 | Delivery Summary ---
Del Sum A-C Datetime Report Generated by CPN: 08/07/2019 03:51 DELIVERY PERSONNEL DELIVERY PERSONNEL: [id number] Delivery Doctor:: Diana Gardner MD Labor and Delivery Nurse:: Ozzy Taylor RNmycology teacher Nurse:: Ariadna Mercedes RN Nursery Nurse:: Raya Cabrera RN MSN Senior Patient Account Representative/OIL WINTERIZER: Mallika Lucia, CURATORIAL SPECIALIST MATERNAL INFORMATION Delivery Anesthesia: None Medications After Delivery: Pitocin Bolus-Please Comment; Cytotec 1000mcg Per Rectum/Vagina Estimated Blood Loss (ml): 50 Delivery QBL: 50 Delivery QBL Comment: 50 Maternal Complications: Precipitous Labor (<3hrs) Provider Comments: VFI delivered in KAN presentation with compound right hand. Shoulders and body delivered without difficulty. Cord doubly clamped and cut and to maternal abdomen for NRP. Placenta delivered intact spontaneously. FF at U. Perineal abrasion repaired for hemostasis. Mother and baby stable upon provider leaving the room. LABOR SUMMARY EDC: 08/05/2019 00:00 No. Babies in Womb: 1 Attempted: No Labor Anesthesia: None LABOR INFORMATION Reason for Induction: Other Reason for Induction- Other: Elective Onset of Labor: 08/07/2019 00:32 Complete Dilatation: 08/07/2019 01:53 Other Ripening Agents: n/a Oxytocin: Induction Group B Beta Strep: Negative Antibiotics # of Doses: n/a Antibiotics Time of Last Dose: n/a Name of Antibiotic Given: n/a Steroids Given: None Reason Steroids Not Administered: Not Applicable Other Reason Not Administered: n/a MEMBRANES Membranes Rupture Method: Artificial Rupture of Membranes: 08/06/2019 23:26 Length of Rupture (hr): 2.50 Amniotic Fluid Color: Clear Amniotic Fluid Amount: Small Amniotic Fluid Odor: Normal STAGES OF LABOR Stage 1 hr: 1 Stage 1 min: 21 Stage 2 hr: 0 Stage 2 min: 3 Stage 3 hr: 0 Stage 3 min: 4 Total Time in Labor hr: 1 Total Time in Labor min: 28 VAGINAL DELIVERY Episiotomy: None Laceration #1: Perineal Laceration Extension #1: N/A Laceration Repair: Yes Laceration Repair Note: superficial perineal repaired for hemostasis with simple suture Sponge Count Correct: Yes Sharps Count Correct: Yes CSECTION DELIVERY Primary Indication: N/A Secondary Indication: N/A CSection Incidence: N/A Labor: N/A Elective: N/A BABY A INFORMATION Delivery Date/Time: 08/07/2019 01:56 Method of Delivery: Vaginal Born in Route : No : N/A Forceps: N/A Vacuum Extraction: N/A Shoulder Dystocia : No PRESENTATION/POSITION BABY A Presentation: Cephalic Cephalic Presentation: Vertex Vertex Position: Right Occipital Anterior Breech Presentation: N/A PLACENTA INFORMATION BABY A Placenta Delivery Time : 08/07/2019 02:00 Placenta Method of Delivery: Spontaneous Placenta Status: Delivered (Annotations: Data stored by [facility] on behalf of user) SCORES BABY A Heart Rate 1 min: >100 bpm Resp Effort 1 min: Good Cry Reflex Irritability 1 min: Cough or Sneeze or Pulls Away Muscle Tone 1 min: Active Motion Color 1 min: Blue/Pale Resuscitation Effort 1 min: Tactile Stimulation SCORE 1 MIN: 8 Heart Rate 5 min: >100 bpm Resp Effort 5 min: Good Cry Reflex Irritability 5 min: Cough or Sneeze or Pulls Away Muscle Tone 5 min: Active Motion Color 5 min: Body [place], Extremities Blue Resuscitation Effort 5 min: Tactile Stimulation SCORE 5 MIN: 9 INFORMATION BABY A Gestational Age at Delivery: 40.2 Gestational Status: Full Term- 39- 40.6 Weeks Infant Outcome : Liveborn Condition : Stable Sex: Female IDENTIFICATION BABY A Infant Verification Date/Time: 08/07/2019 02:20 ID Band Number: [id number] Mother's Name Verified: Yes Infant RN Verifying : Ozzy Eddyamanda, RN and Bridget Kern RN WEIGHT/LENGTH BABY A Birthweight (gm): 3200 Infant Weight (lb): 7 Weight (oz): 1 Infant Length (in): 20.00 Length (cm): 50.80 CORD INFORMATION BABY A No. Cord Vessels: 3 Nuchal Cord : N/A (Annotations: Data stored by CPN on behalf of user) Cord Blood Taken: Yes-For Storage (Mom's Blood type +) (Annotations: Data stored by CPN on behalf of user) Suction: Mouth ASSESSMENT BABY A Skin to Skin: Yes Skin to Skin Time (min): 100 BABY B INFORMATION : N/A SIGNATURES Signature: with User ID: [email or web address]
[2019-08-07] MEDS: IBUPROFEN 800 MG TABLET PO SCH ×3 (05:14→21:09)
[2019-08-07] MEDS: FERROUS SULFATE 325 MG TABLET PO SCH ×4 (09:40→18:32)
[2019-08-07] MEDS: SENNOSIDES/DOCUSATE 8.6-50 MG 1 EACH TABLET PO SCH (09:40)
[2019-08-07] MEDS: DOCUSATE SODIUM 100 MG CAPSULE PO SCH ×2 (09:40→18:31)
[2019-08-07] MEDS: PRENATAL VITAMIN W DHA CAPSULE PO SCH (09:40)
[2019-08-07] MEDS: FAMOTIDINE 20 MG TABLET PO SCH ×2 (09:40→21:10)
[2019-08-07] MEDS: ACETAMINOPHEN WITH CODEINE #3 TABLET PO PRN ×2 (09:49→16:31)
[2019-08-08] MEDS: IBUPROFEN 800 MG TABLET PO SCH (05:50)
[2019-08-08 08:12] LABS: HEMATOCRIT 32.5 % (36.0-47.0); HEMOGLOBIN 10.9 g/dL (12.0-15.5); MEAN CORPUSCULAR HEMOGLOBIN 29.2 pg (27.0-33.4); MEAN CORPUSCULAR HGB CONC 33.5 g/dL (32.0-36.0); MEAN CORPUSCULAR VOLUME 87 fl (80-97); PLATELET COUNT 159 10^3/uL (150-450); RED BLOOD COUNT 3.72 10^6/uL (3.72-5.28); RED CELL DISTRIBUTION WIDTH 13.7 % (11.5-14.0)
[2019-08-08] MEDS: SENNOSIDES/DOCUSATE 8.6-50 MG 1 EACH TABLET PO SCH (09:54)
[2019-08-08] MEDS: FERROUS SULFATE 325 MG TABLET PO SCH ×2 (09:54→14:45)
[2019-08-08] MEDS: PRENATAL VITAMIN W DHA CAPSULE PO SCH (09:55)
[2019-08-08] MEDS: DOCUSATE SODIUM 100 MG CAPSULE PO SCH (09:55)
[2019-08-08] MEDS: FAMOTIDINE 20 MG TABLET PO SCH (10:04)
--- NOTE | 2019-08-08 10:49 | PDOC PROGRESS REPORT ---
Subjective-OB Progress Note for:: 08/08/19 Subjective: PPD #1, pt wants to go home today. She is doing well, no concerns. Bleeding is light, reg diet and voiding without difficulty. Physical Exam (OB) Vital Signs: Temp Pulse Resp BP Pulse Ox 98.1 F 77 16 97/59 L 100 08/08/19 07:39 08/08/19 07:39 08/08/19 07:39 08/08/19 07:39 08/08/19 07:39 Intake & Output 08/07/19 08/08/19 08/09/19 06:59 06:59 06:59 Intake Total 200 Balance 200 Weight 108.4 kg - PIH/Pre-Eclampsia DTR's: 2 + Clonus: Negative Headache: Absent Epigastric Pain: No Visual Changes: No - Lochia Lochia Amount: Small 10-25 ml Lochia Color: Rubra/Red - Abdomen Description: Soft, Round Hernia Present: No Fundal Description: Firm, Midline Fundal Height: u/u - u/2 Objective-Diagnostic Laboratory: 08/08/19 07:53 08/08/19 07:53 WBC 7.0 RBC 3.72 Hgb 10.9 L Hct 32.5 L MCV 87 MCH 29.2 MCHC 33.5 RDW 13.7 Plt Count 159 Assessment and Plan(PN) - Assessment and Plan (1) Encounter for elective induction of labor Is this a current diagnosis for this admission?: Yes (2) Precipitous delivery Is this a current diagnosis for this admission?: Yes (3) Anemia Qualifiers: Anemia type: iron deficiency Iron deficiency anemia type: unspecified iron deficiency Qualified Code(s): D50.9 - Iron deficiency anemia, unspecified Is this a current diagnosis for this admission?: Yes - Time Spent with Patient Time with patient: Less than 15 minutes Medications reviewed and adjusted accordingly: Yes - Disposition Anticipated Discharge: Home Within: within 24 hours
--- NOTE | 2019-08-08 10:50 | PDOC DISCHARGE SUMMARY ---
Impression - Admit/DC Date/PCP Admission Date/Primary Care Provider: 08/06/19 18:25 LAINA BOWER MD Discharge Date: 08/08/19 - Discharge Diagnosis (1) Encounter for elective induction of labor Is this a current diagnosis for this admission?: Yes (2) Precipitous delivery Is this a current diagnosis for this admission?: Yes (3) Anemia Is this a current diagnosis for this admission?: Yes - Additional Information Resuscitation Status: Full Code Discharge Diet: Regular Discharge Activity: Balance Activity w/Rest, Pelvic Rest Referrals: LAINA BOWER MD [Primary Care Provider] - Prescriptions: Ibuprofen [Motrin 800 mg Tablet] 800 mg PO Q8HP PRN #60 tablet PRN Reason: Home Medications: Ferrous Sulfate [Feosol 325 mg Tablet] 325 mg PO BID #0 tablet 03/08/17 Vit,Calc76/Iron/Folic [Prenatabs Rx Tablet] 76 mg PO DAILY 07/28/19 Ibuprofen [Motrin 800 mg Tablet] 800 mg PO Q8HP PRN #60 tablet 08/08/19 Results Laboratory Results: WBC 7.0 10^3/uL (4.0-10.5) 08/08/19 07:53 RBC 3.72 10^6/uL (3.72-5.28) 08/08/19 07:53 Hgb 10.9 g/dL (12.0-15.5) L 08/08/19 07:53 Hct 32.5 % (36.0-47.0) L 08/08/19 07:53 MCV 87 fl (80-97) 08/08/19 07:53 MCH 29.2 pg (27.0-33.4) 08/08/19 07:53 MCHC 33.5 g/dL (32.0-36.0) 08/08/19 07:53 RDW 13.7 % (11.5-14.0) 08/08/19 07:53 Plt Count 159 10^3/uL (150-450) 08/08/19 07:53 Lymph % (Auto) 21.9 % (13-45) 08/06/19 18:54 [place] % (Auto) 10.9 % (3-13) 08/06/19 18:54 Eos % (Auto) 1.5 % (0-6) 08/06/19 18:54 Baso % (Auto) 0.2 % (0-2) 08/06/19 18:54 Absolute Neuts (auto) 3.9 10^3/uL (1.7-8.2) 08/06/19 18:54 Absolute Lymphs (auto) 1.3 10^3/uL (0.5-4.7) 08/06/19 18:54 Absolute Monos (auto) 0.6 10^3/uL (0.1-1.4) 08/06/19 18:54 Absolute Eos (auto) 0.1 10^3/uL (0.0-0.6) 08/06/19 18:54 Absolute Basos (auto) 0.0 10^3/uL (0.0-0.2) 08/06/19 18:54 Seg Neutrophils % 65.5 % (42-78) 08/06/19 18:54 Urine Opiates Screen NEGATIVE 08/06/19 18:35 Urine Methadone Screen NEGATIVE 08/06/19 18:35 Ur Barbiturates Screen NEGATIVE 08/06/19 18:35 Ur Phencyclidine Scrn NEGATIVE 08/06/19 18:35 Ur Amphetamines Screen NEGATIVE 08/06/19 18:35 U Benzodiazepines Scrn NEGATIVE 08/06/19 18:35 Urine Cocaine Screen NEGATIVE 08/06/19 18:35 U Marijuana (THC) Screen NEGATIVE 08/06/19 18:35 RPR NONREACTIVE (NONREACTIVE) 08/06/19 18:54 Blood Type B POSITIVE 08/06/19 18:54 Antibody Screen NEGATIVE 08/06/19 18:54
[2019-08-08 11:26] VITALS: BP 139/63
[2019-08-08] MEDS ORDERED: DIPH/PERTUSS(ACELL)/TETANUS VAC/PF 0.5 ML SYR (>=10YO) IM PRN (11:36)
== END 2019-08-08 12:15 | disposition home or self-care (01) | DRG 807 ==
LOC: LR 18:25 → 2S 08-07 04:26
PROVIDERS: ADMIT Student in an Organized Health Care Education/Training Program; ATTEND Student in an Organized Health Care Education/Training Program
PROC: 10E0XZZ Delivery of Products of Conception, External Approach (ICD-10-PCS; principal; 2019-08-07)
PROC: 0HQ9XZZ Repair Perineum Skin, External Approach (ICD-10-PCS; 2019-08-07)
PROC: 3E033VJ Introduction of Other Hormone into Peripheral Vein, Percutaneous Approach (ICD-10-PCS; 2019-08-07)
PROC: 10907ZC Drainage of Amniotic Fluid, Therapeutic from Products of Conception, Via Natural or Artificial Opening (ICD-10-PCS; 2019-08-07)
DX: O62.3 Precipitate labor (principal); Z37.0 Single live birth; O32.6XX0 Maternal care for compound presentation, not applicable or unspecified; O70.0 First degree perineal laceration during delivery; Z3A.40 40 weeks gestation of pregnancy; O99.02 Anemia complicating childbirth; Z91.040 Latex allergy status
CPT/HCPCS: 36415; 80307; 85025; 85027; 86592; 86850; 86900; 86901; 90715; J2300; J2405; J2590; J3490

== ENCOUNTER 2020-02-19 09:40 | Day surgery (SDC) | payer BC, MEDICAID ==
[2019-10-21 11:29] LABS: HEMATOCRIT 35.3 % (36.0-47.0); HEMOGLOBIN 11.6 g/dL (12.0-15.5); MEAN CORPUSCULAR HEMOGLOBIN 28.7 pg (27.0-33.4); MEAN CORPUSCULAR HGB CONC 32.9 g/dL (32.0-36.0); MEAN CORPUSCULAR VOLUME 87 fl (80-97); PLATELET COUNT 208 10^3/uL (150-450); RED BLOOD COUNT 4.05 10^6/uL (3.72-5.28); RED CELL DISTRIBUTION WIDTH 14.6 % (11.5-14.0); WHITE BLOOD COUNT 5.1 10^3/uL (4.0-10.5)
[2019-10-21 11:33] LABS: APPEARANCE,URINE CLEAR; BILIRUBIN,URINE NEGATIVE (NEGATIVE); COLOR,URINE YELLOW; GLUCOSE, URINE NEGATIVE (NEGATIVE); KETONES,URINE NEGATIVE (NEGATIVE); LEUKOCYTE ESTERASE,URINE NEGATIVE (NEGATIVE); NITRITE,URINE NEGATIVE (NEGATIVE); PROTEIN,URINE NEGATIVE (NEGATIVE); URINE SPECIFIC GRAVITY 1.021
[2019-10-21 11:52] LABS: ANION GAP 6 (5-19); BLOOD UREA NITROGEN 10 mg/dL (7-20); CALCIUM 9.1 mg/dL (8.4-10.2); CARBON DIOXIDE 25 mmol/L (22-30); CHLORIDE 107 mmol/L (98-107); GLUCOSE 97 mg/dL (75-110); POTASSIUM 4.2 mmol/L (3.6-5.0)
[2020-02-11 11:55] LABS: APPEARANCE,URINE SLIGHTLY-CLOUDY; BILIRUBIN,URINE NEGATIVE (NEGATIVE); COLOR,URINE YELLOW; GLUCOSE, URINE NEGATIVE (NEGATIVE); KETONES,URINE NEGATIVE (NEGATIVE); LEUKOCYTE ESTERASE,URINE NEGATIVE (NEGATIVE); NITRITE,URINE NEGATIVE (NEGATIVE); PROTEIN,URINE 30 mg/dL (NEGATIVE); URINE SPECIFIC GRAVITY 1.016; UROBILINOGEN,URINE NEGATIVE mg/dL (<2.0)
[2020-02-11 11:56] LABS: HEMATOCRIT 34.9 % (36.0-47.0); HEMOGLOBIN 11.7 g/dL (12.0-15.5); MEAN CORPUSCULAR HEMOGLOBIN 29.1 pg (27.0-33.4); MEAN CORPUSCULAR HGB CONC 33.5 g/dL (32.0-36.0); MEAN CORPUSCULAR VOLUME 87 fl (80-97); PLATELET COUNT 215 10^3/uL (150-450); RED BLOOD COUNT 4.03 10^6/uL (3.72-5.28); RED CELL DISTRIBUTION WIDTH 13.9 % (11.5-14.0); WHITE BLOOD COUNT 3.1 10^3/uL (4.0-10.5)
[~2020-02-19 09:40] MED LIST: CEFAZOLIN 2 GM/D5W RTU 2 GM/50 ML RTUPB IV PRN; LACTATED RINGERS 1000 ML IV PRN
[2020-02-19] MEDS ORDERED: ROCURONIUM BROMIDE INJ 50 MG/5 ML VIAL IV ONE (09:54)
[2020-02-19] MEDS ORDERED: SUCCINYLCHOLINE CHLORIDE INJ 200 MG/10 ML VIAL ONE (09:54)
[2020-02-19] MEDS ORDERED: LIDOCAINE 2% INJ-PF (20 MG/ML) 2 ML AMPUL ONE (09:54)
[2020-02-19] MEDS ORDERED: NEOSTIGMINE METHYLSULFATE 10 MG/10 ML VIAL ONE (09:54)
[2020-02-19] MEDS ORDERED: DEXAMETHASONE SOD PHOSPHATE INJ 4 MG/1 ML VIAL ONE (09:54)
[2020-02-19] MEDS ORDERED: KETOROLAC TROMETHAMINE 60 MG/2 ML SDV ONE (09:54)
[2020-02-19] MEDS ORDERED: ONDANSETRON HCL INJ/PF 4 MG/2 ML SDV ONE ×2 (09:54→13:49)
[2020-02-19] MEDS ORDERED: GLYCOPYRROLATE 1 MG/5 ML VIAL ONE (09:54)
[2020-02-19] MEDS ORDERED: CEFAZOLIN 1 GM/D5W RTU 1 GM/50 ML RTUPB IV ONE (10:59)
[2020-02-19] MEDS ORDERED: FENTANYL CITRATE INJ/PF 250 MCG/5 ML AMPULE ONE (11:52)
[2020-02-19] MEDS ORDERED: PROPOFOL INJ 200 MG/20 ML VIAL IV ONE (11:53)
[2020-02-19] MEDS ORDERED: HYDROMORPHONE HCL INJ/PF 2 MG/ML AMPULE ONE (11:53)
[2020-02-19] MEDS ORDERED: BUPIVACAINE HCL 0.25 % INJ/PF (2.5 MG/1 ML) 30 ML VIAL ONE (11:54)
[2020-02-19] MEDS ORDERED: FENTANYL CITRATE INJ/PF 100 MCG/2 ML AMPUL IV PRN (12:29)
[2020-02-19] MEDS ORDERED: DIPHENHYDRAMINE HCL 50 MG/ML VIAL IV PRN (12:29)
[2020-02-19] MEDS ORDERED: MEPERIDINE HCL/PF INJ 25 MG/1 ML DISP.SYRIN IV PRN (12:29)
[2020-02-19] MEDS ORDERED: PROMETHAZINE HCL INJ 25 MG/1 ML VIAL IV PRN (12:29)
[2020-02-19] MEDS ORDERED: MORPHINE SULFATE 10 MG/ML INJ IV PRN (12:29)
[2020-02-19] MEDS ORDERED: OXYCODONE-ACETAMINOPHEN 5-325 MG TABLET PO PRN ×2 (12:29)
[2020-02-19] MEDS ORDERED: SUGAMMADEX SODIUM 200 MG/2 ML SDV IV ONE (12:51)
[2020-02-19] MEDS ORDERED: FENTANYL CITRATE INJ/PF 100 MCG/2 ML AMPUL ONE (13:15)
[2020-02-19 14:55] VITALS: BP 144/92
--- NOTE | 2020-02-20 07:37 | Operative Report ---
Operative Report DATE OF SURGERY: 02/19/20 PREOPERATIVE DIAGNOSIS: Undesired Fertility, Multiparity POSTOPERATIVE DIAGNOSIS: BENJAMIN OPERATION: Operative Laparoscopy with Bilateral Tubal Occlusion with Filshie Clips SURGEON: LAINA BOWER ANESTHESIA: GA TISSUE REMOVED OR ALTERED: None COMPLICATIONS: None ESTIMATED BLOOD LOSS: less than 5 INTRAOPERATIVE FINDINGS: Normal bilateral tubes/ovaries, normal uterus except somewhat boggy (possible adenomyosis) PROCEDURE: Anesthesiologist: Italo Cowan MD, CRNA IV fluids: [700ml] Urine output: [100ml] Indications: [30yo presents for Undesired fertility and multiparity and desires permanent sterilization. She is 100% sure that she has completed childbearing. The risks, benefits, alternatives were reviewed and she desires to proceed with planned procedure of Laparoscopy Bilateral tubal Ligation/Occlusion.] Procedure: The patient was taken to the operating room where general anesthesia was obtained without difficulty. The patient was then examined under anesthesia with findings as noted above with a small anteverted uterus. She was then placed in dorsal supine lithotomy position and prepped and draped in the normal sterile fashion. Caulfield speculum was then placed in the patient's vagina and the anterior lip of the cervix grasped with a single-tooth tenaculum. A sponge stick uterine manipulator was then advanced into the uterus to provide a means of manipulation of the uterus. The speculum and tenaculum were then removed from the patient's cervix and vagina. Attention was then turned to the patient's abdomen where a 5 mm infraumbilical skin incision was then made. The Optiview trocar with 0 laparoscope was then advanced without difficulty under direct visualization with the Optiview trocar. This was performed while tenting the abdominal wall and these will fashion. Intraperitoneal placement was confirmed by the direct visualization. Pneumoperitoneum was then obtained with approximately 4 L carbon dioxide gas. Survey of the patient's abdomen and pelvis revealed findings as noted above. A second skin incision was then made 2cm above the pubic symphysis in the midline. This incision were made under direct visualization with the laparoscope. The additional trochar was then advanced under direct visualization of the laparoscope at the sites. The right fallopian tube was then identified and followed out to the fimbriated end and Filschie clip applied in the mid ampullary portion to complete tubal ligation on the right side. The right ovary was noted to be normal and vasculature remained intact to this ovary. Attention was then turned to the left adnexa at which time the left fallopian tube was identified and followed out to the fimbriated end and the Filschie clip was applied in the mid ampullary portion of the fallopian tube thus completing the tubal occlusion on the left. All operative sites were visualized and noted to be hemostatic. The additional trochar on the was then removed under direct visualization. The 5 mm trocar was then removed after abdominal insufflation was removed. The skin at all trocar sites were closed with 3-0 Monocryl in a subcuticular fashion with overlying Exofin. 2grams Ancef were given preoperatively. After completion of skin closure of the trocar sites attention was then turned to the vagina where the Soonge stick uterine manipulator was removed and the bivalve speculum was replaced. Silver nitrate was applied to the tenaculum sites for hemostasis and the speculum was removed. Sponge lap needle and instrument counts were correct 3. The patient tolerated the procedure well and was taken to the recovery area awake and in stable condition.
== END 2020-02-19 14:50 | disposition home or self-care (01) ==
LOC: OROUT 09:40
PROVIDERS: ATTEND Student in an Organized Health Care Education/Training Program
DX: Z30.2 Encounter for sterilization (principal); D64.9 Anemia, unspecified; E66.9 Obesity, unspecified; F17.210 Nicotine dependence, cigarettes, uncomplicated; F12.10 Cannabis abuse, uncomplicated; Z79.899 Other long term (current) drug therapy; Z03.818 Encounter for observation for suspected exposure to other biological agents ruled out; Z91.040 Latex allergy status
CPT/HCPCS: 36415 ×2; 85027 ×2; 87635 ×2; 81005 ×2; 81025; 80048; 58671; J0690; J3010 ×2; J2405; J2704; J3490; C9803 ×2; J0330; J1100; J1170; J1885; J2710